=== PATIENT | female | born 1940 | race Caucasian/White ===

== ENCOUNTER 2018-11-13 05:58 | Emergency (ER) | payer MEDICAID, MEDICARE ==
[~2018-11-13] VITALS: Ht 162.6 cm; Wt 69.0 kg
[~2018-11-13 05:58] MED LIST: AMLO5TAB88 PO; CALC-1017 PO; DEXL60CA3 PO; HYDR-4005; LAMIS2 PO; LEVO500T2 PO; METO-293 PO; OMEP20CA10 PO; SIMV20TA6 PO; SUCR1TAB30 PO; TRAM50TA3 PO
[2018-11-13] MEDS ORDERED: HYDROCODONE/ACETAMINOPHEN 5/325MG TABLET PO ONE (07:00)
[2018-11-13] MEDS ORDERED: ONDANSETRON HCL 4MG/2ML INJ IV ONE (07:00)
[2018-11-13] MEDS ORDERED: ONDANSETRON 4MG ODT PO ONE (07:30)
[2018-11-13 08:48] VITALS: BP 136/88
== END 2018-11-13 10:08 | disposition home or self-care (01) ==
LOC: ER 07:31
DX: S20.20XA Contusion of thorax, unspecified, initial encounter (principal); M25.532 Pain in left wrist; M25.512 Pain in left shoulder; I10 Essential (primary) hypertension; M19.90 Unspecified osteoarthritis, unspecified site; Z95.0 Presence of cardiac pacemaker; W01.0XXA Fall on same level from slipping, tripping and stumbling without subsequent striking against object, initial encounter; Y93.89 Activity, other specified; Y92.018 Other place in single-family (private) house as the place of occurrence of the external cause
CPT/HCPCS: 29125; 71101; 73030; 73090; 73110; 73130; 99283; Q0162; A4565

== ENCOUNTER 2018-11-27 08:56 | Emergency (ER) | payer MEDICARE, MEDICAID ==
[~2018-11-27] VITALS: Ht 132.1 cm; Wt 70.0 kg
[2018-11-27 09:19] VITALS: BP 126/66
== END 2018-11-27 10:59 | disposition home or self-care (01) ==
LOC: ER 08:56
DX: M25.532 Pain in left wrist (principal); Z48.00 Encounter for change or removal of nonsurgical wound dressing
CPT/HCPCS: 29125; 99283

== ENCOUNTER 2019-05-08 09:47 | Emergency (ER) | payer MEDICARE, MEDICAID ==
[~2019-05-08] VITALS: Ht 147.3 cm; Wt 70.0 kg
[~2019-05-08 09:47] MED LIST changes: -OMEP20CA10 PO; +OMEP20CA5 PO
[2019-05-08] MEDS ORDERED: IBUPROFEN 600MG TABLET PO STA (10:57)
[2019-05-08 11:06] LABS: CHLORIDE 99 mEq/L (98-107)
[2019-05-08 11:09] LABS: BASOPHILS % 0.1 % (0.0-2.0); EOSINOPHILS % 0.2 % (0.0-5.0); HEMATOCRIT. 34.7 % (36.0-48.0); HEMOGLOBIN. 11.9 g/dL (12.0-16.0); LYMPHOCYTES % 10.2 % (20.0-50.0); MEAN CORPUSCULAR VOLUME 87.3 fL (81.0-99.0); MEAN PLATELET VOLUME 9.2 fl (7.4-10.4); MONOCYTES % 7.3 % (2.0-8.0); NEUTROPHILS % 82.2 % (40.0-76.0); RED BLOOD CELL COUNT 3.97 mill/uL (4.2-5.4); RED CELL DISTRIBUTION WIDTH 14.3 % (11.6-14.6)
[2019-05-08 11:33] LABS: PLATELET 211 x1000/uL (130-400)
[2019-05-08] MEDS ORDERED: KETOROLAC 15MG/ML VIAL IV ONE (13:45)
[2019-05-08] MEDS ORDERED: PREDNISONE 20MG TABLET PO ONE (13:45)
[2019-05-08 14:43] VITALS: BP 131/77
== END 2019-05-08 14:45 | disposition home or self-care (01) ==
LOC: ER 09:47
DX: M13.88 Other specified arthritis, other site (principal); E78.00 Pure hypercholesterolemia, unspecified; I10 Essential (primary) hypertension; I48.91 Unspecified atrial fibrillation; Z79.899 Other long term (current) drug therapy
CPT/HCPCS: 36415; 73110; 73610; 80053; 85025; 85651; 86140; 93005; 96374; 99283; J1885; J7512

== ENCOUNTER 2020-08-08 10:50 | Emergency (ER) | payer MEDICARE, MEDICAID ==
[~2020-08-08] VITALS: Ht 149.9 cm; Wt 67.5 kg
[~2020-08-08 10:50] MED LIST changes: +OMEP20CA14 PO; -OMEP20CA5 PO; +SIMV-43 PO; -SIMV20TA6 PO
[2020-08-08] MEDS ORDERED: SODIUM CHLORIDE 0.9% 1,000 ML IV ONE (11:30)
[2020-08-08] MEDS ORDERED: PROCHLORPERAZINE 10MG/2ML VIAL IV PRN (11:30)
[2020-08-08 11:57] LABS: BASOPHILS % 0.4 % (0.0-2.0); EOSINOPHILS % 0.7 % (0.0-5.0); HEMATOCRIT. 37.8 % (36.0-48.0); HEMOGLOBIN. 12.9 g/dL (12.0-16.0); LYMPHOCYTES % 19.2 % (20.0-50.0); MEAN CORPUSCULAR HEMOGLOBIN 31.3 pg (28.0-32.0); MEAN CORPUSCULAR VOLUME 91.8 fL (81.0-99.0); MEAN PLATELET VOLUME 8.6 fl (7.4-10.4); MONOCYTES % 7.1 % (2.0-8.0); NEUTROPHILS % 72.6 % (40.0-76.0); PLATELET 248 x1000/uL (130-400); RED BLOOD CELL COUNT 4.12 mill/uL (4.2-5.4); RED CELL DISTRIBUTION WIDTH 13.2 % (11.6-14.6)
[2020-08-08 12:03] LABS: CHLORIDE 102 mEq/L (98-107)
[2020-08-08 12:38] LABS: CLARITY URINE CLEAR (CLEAR); COLOR URINE YELLOW (YELLOW); KETONES URINE NEGATIVE (NEGATIVE); LEUKOCYTE ESTERASE URINE NEGATIVE (NEGATIVE); NITRITE URINE NEGATIVE (NEGATIVE); OCCULT BLOOD URINE TRACE (NEGATIVE); PROTEIN URINE NEGATIVE (NEGATIVE); SPECIFIC GRAVITY URINE 1.012 (1.005-1.030); UROBILINOGEN URINE 0.2 E.U./dL (0.2-1.0)
[2020-08-08 13:02] VITALS: BP 130/75
== END 2020-08-08 13:18 | disposition home or self-care (01) ==
LOC: ER 10:50
DX: R42 Dizziness and giddiness (principal); R51 Headache; I48.91 Unspecified atrial fibrillation; E78.00 Pure hypercholesterolemia, unspecified; I10 Essential (primary) hypertension; Z79.899 Other long term (current) drug therapy
CPT/HCPCS: 36415; 80048; 81003; 85025; 93005; 96361; 96374; 99284; J7030

== ENCOUNTER 2020-10-06 14:07 | Inpatient (IN) | payer MEDICARE, MEDICAID ==
[~2020-10-06] VITALS: Ht 162.6 cm; Wt 70.8 kg
[2020-10-06] MEDS ORDERED: MORPHINE SULFATE 4 MG/ML CPJ (NOT FOR IM USE) IV STA ×2 (14:31→16:36)
[2020-10-06] MEDS ORDERED: ONDANSETRON HCL 4MG/2ML INJ IV STA ×2 (14:31→16:36)
[2020-10-06] MEDS ORDERED: SODIUM CHLORIDE 0.9% 1,000 ML IV ONE (14:45)
[2020-10-06 15:06] LABS: BASOPHILS % 0.2 % (0.0-2.0); EOSINOPHILS % 0.8 % (0.0-5.0); HEMATOCRIT. 35.2 % (36.0-48.0); HEMOGLOBIN. 11.9 g/dL (12.0-16.0); LYMPHOCYTES % 28.4 % (20.0-50.0); MEAN CORPUSCULAR HEMOGLOBIN 30.5 pg (28.0-32.0); MEAN CORPUSCULAR VOLUME 90.4 fL (81.0-99.0); MEAN PLATELET VOLUME 8.1 fl (7.4-10.4); MONOCYTES % 6.6 % (2.0-8.0); PLATELET 235 x1000/uL (130-400); RED CELL DISTRIBUTION WIDTH 13.1 % (11.6-14.6)
[2020-10-06 15:17] LABS: CHLORIDE 98 mEq/L (98-107)
[2020-10-06 15:19] LABS: PARTIAL THROMBOPLASTIN TIME 27.6 sec (23.4-31.0); PROTHROMBIN TIME 10.4 sec (9.6-11.0)
[2020-10-06] MEDS ORDERED: AZITHROMYCIN 500 MG in DEXT 5% WATER 250 ML IV ONE (16:45)
[2020-10-06] MEDS ORDERED: CEFTRIAXONE 1 G PREMIX 50 ML IV ONE (16:45)
[2020-10-06 17:40] LABS: CLARITY URINE CLEAR (CLEAR); COLOR URINE YELLOW (YELLOW); KETONES URINE NEGATIVE (NEGATIVE); LEUKOCYTE ESTERASE URINE NEGATIVE (NEGATIVE); NITRITE URINE NEGATIVE (NEGATIVE); OCCULT BLOOD URINE NEGATIVE (NEGATIVE); PH URINE 5.5 (4.5-8.0); PROTEIN URINE NEGATIVE (NEGATIVE); SPECIFIC GRAVITY URINE 1.018 (1.005-1.030); UROBILINOGEN URINE 0.2 E.U./dL (0.2-1.0)
[2020-10-06] MEDS ORDERED: CLONIDINE 0.1MG TABLET PO PRN (18:45)
[2020-10-06] MEDS ORDERED: IPRATROPIUM/ALBUTEROL 0.5-3(2.5)MG/3ML NEB NEB PRN (18:45)
[2020-10-06] MEDS ORDERED: DOCUSATE SODIUM 100MG CAPSULE PO PRN (18:45)
[2020-10-06] MEDS ORDERED: GUAIFENESIN 200MG/10ML SUGAR FREE UDC PO PRN (18:45)
[2020-10-06] MEDS ORDERED: MAGNESIUM/ALUMINUM HYDROXIDE/SIMETHICONE 30ML UDC PO PRN (18:45)
[2020-10-06] MEDS ORDERED: NITROGLYCERIN 0.4MG TABLET SL SL PRN (18:45)
[2020-10-06] MEDS ORDERED: ONDANSETRON HCL 4MG/2ML INJ IV PRN (18:45)
[2020-10-06] MEDS ORDERED: TRAMADOL 50MG TABLET PO PRN (18:45)
[2020-10-06] MEDS ORDERED: ACETAMINOPHEN 325MG TABLET PO PRN ×2 (18:45)
[2020-10-06] MEDS ORDERED: MORPHINE SULFATE 2 MG/ML CPJ (NOT FOR IM USE) IV PRN (18:45)
[2020-10-06] MEDS ORDERED: NA PHOS,M-B/NA PHOS,DI-BA ENEMA 118ML PR PRN (18:45)
[2020-10-06 19:50] LABS: FOLIC ACID (FOLATE) SERUM 16.6 ng/mL (>5.38)
[2020-10-06] MEDS: ENOXAPARIN 40MG/0.4ML SYR SUBCUT SCH (20:30)
[2020-10-06 21:00] VITALS: BP 142/62
[2020-10-06 21:15] VITALS: BP 142/62
[2020-10-06] MEDS: METOPROLOL TARTRATE 25MG TABLET PO SCH (23:09)
[2020-10-06] MEDS: FAMOTIDINE 20MG TABLET PO SCH (23:09)
[2020-10-06] MEDS: ASCORBIC ACID 500 MG TABLET PO SCH (23:09)
[2020-10-07] VITALS: BP 120/69
[2020-10-07 00:38] LABS: CREATINE KINASE 302 IU/L (26-192)
[2020-10-07 00:39] LABS: CREATINE KINASE MB FRACTION 4.8 ng/mL (0.5-3.6)
[2020-10-07 05:13] LABS: CREATINE KINASE 289 IU/L (26-192)
[2020-10-07 05:15] LABS: CREATINE KINASE MB FRACTION 3.5 ng/mL (0.5-3.6)
[2020-10-07] MEDS: FERROUS SULFATE 300MG/5ML UDC PO SCH ×3 (07:35→17:29)
[2020-10-07 08:00] VITALS: BP 122/74
[2020-10-07] MEDS: METOPROLOL TARTRATE 25MG TABLET PO SCH ×2 (09:56→22:37)
[2020-10-07] MEDS: ZINC SULFATE 220 MG ( 50 ) CAPSULE PO SCH (09:56)
[2020-10-07] MEDS: ASCORBIC ACID 500 MG TABLET PO SCH ×2 (09:56→22:37)
[2020-10-07] MEDS: FAMOTIDINE 20MG TABLET PO SCH (09:56)
[2020-10-07 12:00] VITALS: BP 125/66
[2020-10-07 16:00] VITALS: BP 136/68
[2020-10-07] MEDS ORDERED: FENTANYL CITRATE/PF 50MCG/ML 2ML VIAL ONE (19:10)
[2020-10-07] MEDS ORDERED: MIDAZOLAM HCL 2 MG/2 ML VIAL ONE (19:11)
[2020-10-07] MEDS ORDERED: ETOMIDATE 2MG/ML 10ML VIAL IV ONE (19:17)
[2020-10-07] MEDS ORDERED: ROCURONIUM BROMIDE 10MG/ML VIAL 5ML IV ONE (19:17)
[2020-10-07] MEDS ORDERED: CEFAZOLIN SODIUM 1000MG/VIAL ONE (19:27)
[2020-10-07] MEDS ORDERED: DEXAMETHASONE 4MG/ML 1ML VIAL ONE (19:35)
[2020-10-07] MEDS ORDERED: ONDANSETRON HCL 4MG/2ML INJ ONE (19:35)
[2020-10-07] MEDS ORDERED: HYDROMORPHONE HCL/PF 2MG/ML CPJ IV PRN ×2 (20:32→21:00)
[2020-10-07 21:55] VITALS: BP 130/60
[2020-10-07] MEDS: CEFAZOLIN 2,000 MG in DEXT 5% WATER 100 ML IV SCH (23:29)
[2020-10-07] MEDS: HYDROCODONE/ACETAMINOPHEN 5/325MG TABLET PO PRN (23:44)
[2020-10-08 00:39] VITALS: BP 115/63
[2020-10-08 04:00] VITALS: BP 96/57
[2020-10-08 05:47] LABS: HEMATOCRIT. 30.9 % (36.0-48.0); HEMOGLOBIN. 10.4 g/dL (12.0-16.0); LYMPHOCYTES % 7.5 % (20.0-50.0); MEAN CORPUSCULAR HEMOGLOBIN 30.4 pg (28.0-32.0); MEAN CORPUSCULAR VOLUME 90.1 fL (81.0-99.0); MEAN PLATELET VOLUME 8.3 fl (7.4-10.4); MONOCYTES % 3.4 % (2.0-8.0); NEUTROPHILS % 89.1 % (40.0-76.0); PLATELET 207 x1000/uL (130-400); RED BLOOD CELL COUNT 3.43 mill/uL (4.2-5.4); RED CELL DISTRIBUTION WIDTH 13.1 % (11.6-14.6)
[2020-10-08 06:08] LABS: CHLORIDE 106 mEq/L (98-107)
[2020-10-08] MEDS: CEFAZOLIN 2,000 MG in DEXT 5% WATER 100 ML IV SCH ×3 (06:50→22:56)
[2020-10-08 08:38] VITALS: BP 107/64
[2020-10-08] MEDS: FAMOTIDINE 20MG TABLET PO SCH (08:44)
[2020-10-08] MEDS: ZINC SULFATE 220 MG ( 50 ) CAPSULE PO SCH (08:44)
[2020-10-08] MEDS: FERROUS SULFATE 300MG/5ML UDC PO SCH ×3 (08:44→17:51)
[2020-10-08] MEDS: ASCORBIC ACID 500 MG TABLET PO SCH ×2 (08:44→20:33)
[2020-10-08] MEDS: METOPROLOL TARTRATE 25MG TABLET PO SCH ×2 (08:45→20:43)
[2020-10-08 12:00] VITALS: BP 105/55
[2020-10-08] MEDS: HYDROCODONE/ACETAMINOPHEN 5/325MG TABLET PO PRN ×2 (13:10→13:13)
[2020-10-08 16:29] VITALS: BP 121/64
[2020-10-08] MEDS: ENOXAPARIN 40MG/0.4ML SYR SUBCUT SCH ×2 (19:45→20:34)
[2020-10-08 20:00] VITALS: BP 111/58
[2020-10-08] MEDS: ZOLPIDEM TARTRATE 5MG TABLET PO PRN (20:33)
[2020-10-09] VITALS: BP 106/55
[2020-10-09 04:00] VITALS: BP 96/51
[2020-10-09 06:37] LABS: BASOPHILS % 0.1 % (0.0-2.0); EOSINOPHILS % 0.3 % (0.0-5.0); HEMOGLOBIN. 9.5 g/dL (12.0-16.0); LYMPHOCYTES % 30.3 % (20.0-50.0); MEAN CORPUSCULAR HEMOGLOBIN 30.7 pg (28.0-32.0); MEAN CORPUSCULAR VOLUME 90.4 fL (81.0-99.0); MEAN PLATELET VOLUME 8.7 fl (7.4-10.4); MONOCYTES % 11.5 % (2.0-8.0); NEUTROPHILS % 57.8 % (40.0-76.0); PLATELET 188 x1000/uL (130-400); RED BLOOD CELL COUNT 3.09 mill/uL (4.2-5.4); RED CELL DISTRIBUTION WIDTH 13.3 % (11.6-14.6)
[2020-10-09 06:47] LABS: CHLORIDE 106 mEq/L (98-107)
[2020-10-09] MEDS: CEFAZOLIN 2,000 MG in DEXT 5% WATER 100 ML IV SCH ×3 (07:10→22:25)
[2020-10-09 08:18] VITALS: BP 111/60
[2020-10-09] MEDS: FERROUS SULFATE 300MG/5ML UDC PO SCH ×3 (10:17→18:09)
[2020-10-09] MEDS: ZINC SULFATE 220 MG ( 50 ) CAPSULE PO SCH (10:17)
[2020-10-09] MEDS: FAMOTIDINE 20MG TABLET PO SCH (10:18)
[2020-10-09] MEDS: ASCORBIC ACID 500 MG TABLET PO SCH ×2 (10:18→21:25)
[2020-10-09] MEDS: METOPROLOL TARTRATE 25MG TABLET PO SCH ×2 (10:18→21:25)
[2020-10-09] MEDS: HYDROCODONE/ACETAMINOPHEN 5/325MG TABLET PO PRN ×2 (11:26→15:24)
[2020-10-09 12:45] VITALS: BP 111/61
[2020-10-09 17:18] VITALS: BP 111/60
[2020-10-09] MEDS: DOCUSATE SODIUM 100MG CAPSULE PO SCH (18:09)
[2020-10-09] MEDS: CYANOCOBALAMIN 1000MCG/ML VIAL IM SCH (18:09)
[2020-10-09 20:00] VITALS: BP 125/50
[2020-10-09] MEDS ORDERED: POLYETHYLENE GLYCOL 3350 (17GM) 1 DOSE PACK PO SCH (21:00)
[2020-10-09] MEDS: ENOXAPARIN 40MG/0.4ML SYR SUBCUT SCH (21:26)
[2020-10-09] MEDS: ZOLPIDEM TARTRATE 5MG TABLET PO PRN (22:24)
[2020-10-10 00:34] VITALS: BP 130/67
[2020-10-10 04:00] VITALS: BP 105/63
[2020-10-10 06:19] LABS: BASOPHILS % 0.3 % (0.0-2.0); HEMATOCRIT. 26.5 % (36.0-48.0); HEMOGLOBIN. 8.9 g/dL (12.0-16.0); LYMPHOCYTES % 23.3 % (20.0-50.0); MEAN CORPUSCULAR HEMOGLOBIN 30.7 pg (28.0-32.0); MEAN CORPUSCULAR VOLUME 90.6 fL (81.0-99.0); MEAN PLATELET VOLUME 8.9 fl (7.4-10.4); MONOCYTES % 8.1 % (2.0-8.0); NEUTROPHILS % 67.3 % (40.0-76.0); PLATELET 194 x1000/uL (130-400); RED BLOOD CELL COUNT 2.92 mill/uL (4.2-5.4); RED CELL DISTRIBUTION WIDTH 13.2 % (11.6-14.6)
[2020-10-10 06:28] LABS: CHLORIDE 103 mEq/L (98-107)
[2020-10-10 08:00] VITALS: BP 108/54
[2020-10-10] MEDS: FERROUS SULFATE 300MG/5ML UDC PO SCH ×3 (08:59→17:54)
[2020-10-10] MEDS: ASCORBIC ACID 500 MG TABLET PO SCH (08:59)
[2020-10-10] MEDS: ZINC SULFATE 220 MG ( 50 ) CAPSULE PO SCH (09:00)
[2020-10-10] MEDS: METOPROLOL TARTRATE 25MG TABLET PO SCH (09:00)
[2020-10-10] MEDS: DOCUSATE SODIUM 100MG CAPSULE PO SCH ×2 (09:00→17:54)
[2020-10-10] MEDS: FAMOTIDINE 20MG TABLET PO SCH (09:00)
[2020-10-10] MEDS: CYANOCOBALAMIN 1000MCG/ML VIAL IM SCH (09:03)
[2020-10-10] MEDS: HYDROCODONE/ACETAMINOPHEN 5/325MG TABLET PO PRN (09:14)
[2020-10-10 12:00] VITALS: BP 112/50
[2020-10-10 15:25] VITALS: BP 112/50
[2020-10-10 16:00] VITALS: BP 125/58
== END 2020-10-10 18:08 | DRG 481 ==
LOC: ER 14:07 → 7EST 18:12 → SUPCPDRO 18:37 → ENRESERV 20:29 → 6WST 10-07 21:50
PROVIDERS: ADMIT Internal Medicine; ATTEND Internal Medicine
PROC: 0QS804Z Reposition Right Femoral Shaft with Internal Fixation Device, Open Approach (ICD-10-PCS; principal; 2020-10-08)
DX: S72.8X1A Other fracture of right femur, initial encounter for closed fracture (principal); D62 Acute posthemorrhagic anemia; E87.1 Hypo-osmolality and hyponatremia; E87.2 Acidosis; I50.32 Chronic diastolic (congestive) heart failure; M97.11XA Periprosthetic fracture around internal prosthetic right knee joint, initial encounter; D63.8 Anemia in other chronic diseases classified elsewhere; I11.0 Hypertensive heart disease with heart failure; M85.80 Other specified disorders of bone density and structure, unspecified site; E78.5 Hyperlipidemia, unspecified; E53.8 Deficiency of other specified B group vitamins; E78.00 Pure hypercholesterolemia, unspecified; I25.9 Chronic ischemic heart disease, unspecified; I48.0 Paroxysmal atrial fibrillation; M19.019 Primary osteoarthritis, unspecified shoulder; M75.00 Adhesive capsulitis of unspecified shoulder; W01.0XXA Fall on same level from slipping, tripping and stumbling without subsequent striking against object, initial encounter; Z20.828 Contact with and (suspected) exposure to other viral communicable diseases; I49.5 Sick sinus syndrome; Z96.653 Presence of artificial knee joint, bilateral; Z79.899 Other long term (current) drug therapy; Z95.0 Presence of cardiac pacemaker; Y93.89 Activity, other specified; Y92.89 Other specified places as the place of occurrence of the external cause; Y99.8 Other external cause status; Z79.2 Long term (current) use of antibiotics; Z79.891 Long term (current) use of opiate analgesic
CPT/HCPCS: 36415; 71045; 73502; 73552; 73560; 76000; 80048; 80053; 80061; 81003; 82550; 82553; 82607; 82746; 83036; 83540; 83550; 83605; 83735; 83880; 84484; 85025; 86850; 86900; 87635; 93005; 93306; 93970; 96365; 97162; 97166; 97530; 97535; 99291; C1713; C1893; J0456; J0690; J0696; J1100; J1170; J1650; J2250; J2405; J3010; J3420; J3490; J7030; J7040; J7060

== ENCOUNTER 2020-10-10 18:05 | Inpatient (IN) | payer MEDICARE, MEDICAID ==
[~2020-10-10] VITALS: Ht 142.2 cm; Wt 73.6 kg
[2020-10-10] MEDS ORDERED: GUAIFENESIN 200MG/10ML SUGAR FREE UDC PO PRN (19:15)
[2020-10-10] MEDS ORDERED: ACETAMINOPHEN 325MG TABLET PO PRN (19:15)
[2020-10-10] MEDS ORDERED: NITROGLYCERIN 0.4MG TABLET SL SL PRN (19:15)
[2020-10-10] MEDS ORDERED: ONDANSETRON HCL 4MG/2ML INJ IV PRN (19:15)
[2020-10-10] MEDS ORDERED: NA PHOS,M-B/NA PHOS,DI-BA ENEMA 118ML PR PRN (19:15)
[2020-10-10] MEDS ORDERED: IPRATROPIUM/ALBUTEROL 0.5-3(2.5)MG/3ML NEB HHN PRN (19:15)
[2020-10-10] MEDS ORDERED: CLONIDINE 0.1MG TABLET PO PRN (19:15)
[2020-10-10] MEDS ORDERED: MAGNESIUM/ALUMINUM HYDROXIDE/SIMETHICONE 30ML UDC PO PRN (19:15)
[2020-10-10 20:00] VITALS: BP 106/65
[2020-10-10] MEDS ORDERED: ZOLPIDEM TARTRATE 5MG TABLET PO PRN (21:00)
[2020-10-10] MEDS: ASCORBIC ACID 500 MG TABLET PO SCH (21:25)
[2020-10-10] MEDS: METOPROLOL TARTRATE 25MG TABLET PO SCH (21:25)
[2020-10-10] MEDS: POLYETHYLENE GLYCOL 3350 (17GM) 1 DOSE PACK PO SCH (21:25)
[2020-10-10] MEDS: ENOXAPARIN 40MG/0.4ML SYR SUBCUT SCH (21:26)
[2020-10-11] MEDS: HYDROCODONE/ACETAMINOPHEN 10/325MG TABLET PO PRN ×2 (05:57→11:57)
[2020-10-11 06:04] LABS: BASOPHILS % 0.3 % (0.0-2.0); EOSINOPHILS % 1.1 % (0.0-5.0); HEMATOCRIT. 24.6 % (36.0-48.0); HEMOGLOBIN. 8.4 g/dL (12.0-16.0); LYMPHOCYTES % 26.5 % (20.0-50.0); MEAN CORPUSCULAR HEMOGLOBIN 30.3 pg (28.0-32.0); MEAN CORPUSCULAR VOLUME 88.9 fL (81.0-99.0); MONOCYTES % 8.6 % (2.0-8.0); NEUTROPHILS % 63.5 % (40.0-76.0); PLATELET 201 x1000/uL (130-400); RED BLOOD CELL COUNT 2.76 mill/uL (4.2-5.4); RED CELL DISTRIBUTION WIDTH 13.4 % (11.6-14.6)
[2020-10-11 06:23] LABS: CHLORIDE 103 mEq/L (98-107)
[2020-10-11 08:00] VITALS: BP 116/60
[2020-10-11] MEDS: ASCORBIC ACID 500 MG TABLET PO SCH ×2 (09:26→20:36)
[2020-10-11] MEDS: METOPROLOL TARTRATE 25MG TABLET PO SCH ×2 (09:26→20:39)
[2020-10-11] MEDS: FERROUS SULFATE 300MG/5ML UDC PO SCH ×3 (09:26→16:33)
[2020-10-11] MEDS: DOCUSATE SODIUM 100MG CAPSULE PO SCH ×2 (09:26→16:34)
[2020-10-11] MEDS: ZINC SULFATE 220 MG ( 50 ) CAPSULE PO SCH (09:27)
[2020-10-11] MEDS: LACTULOSE 20G/30ML UDC PO SCH ×2 (09:27→11:57)
[2020-10-11] MEDS: CYANOCOBALAMIN 1000MCG/ML VIAL IM SCH (09:27)
[2020-10-11 12:44] LABS: CLARITY URINE CLEAR (CLEAR); COLOR URINE YELLOW (YELLOW); KETONES URINE NEGATIVE (NEGATIVE); LEUKOCYTE ESTERASE URINE NEGATIVE (NEGATIVE); NITRITE URINE NEGATIVE (NEGATIVE); OCCULT BLOOD URINE NEGATIVE (NEGATIVE); PH URINE 6.5 (4.5-8.0); PROTEIN URINE TRACE (NEGATIVE); SPECIFIC GRAVITY URINE 1.026 (1.005-1.030)
[2020-10-11 20:00] VITALS: BP 121/55
[2020-10-11] MEDS: POLYETHYLENE GLYCOL 3350 (17GM) 1 DOSE PACK PO SCH (20:39)
[2020-10-11] MEDS: ENOXAPARIN 40MG/0.4ML SYR SUBCUT SCH (20:55)
[2020-10-11] MEDS ORDERED: FAMOTIDINE 20MG TABLET PO SCH (21:00)
[2020-10-12 06:13] LABS: BASOPHILS % 0.2 % (0.0-2.0); EOSINOPHILS % 1.6 % (0.0-5.0); HEMOGLOBIN. 8.4 g/dL (12.0-16.0); LYMPHOCYTES % 24.9 % (20.0-50.0); MEAN CORPUSCULAR HEMOGLOBIN 30.5 pg (28.0-32.0); MEAN CORPUSCULAR VOLUME 90.6 fL (81.0-99.0); MEAN PLATELET VOLUME 8.3 fl (7.4-10.4); MONOCYTES % 9.1 % (2.0-8.0); NEUTROPHILS % 64.2 % (40.0-76.0); PLATELET 213 x1000/uL (130-400); RED BLOOD CELL COUNT 2.76 mill/uL (4.2-5.4); RED CELL DISTRIBUTION WIDTH 13.5 % (11.6-14.6)
[2020-10-12 06:18] LABS: CHLORIDE 106 mEq/L (98-107)
[2020-10-12 06:27] LABS: PHOSPHORUS 2.4 mg/dL (2.5-4.9)
[2020-10-12 08:03] VITALS: BP 127/65
[2020-10-12] MEDS: ZINC SULFATE 220 MG ( 50 ) CAPSULE PO SCH (08:28)
[2020-10-12] MEDS: CYANOCOBALAMIN 1000MCG/ML VIAL IM SCH (08:28)
[2020-10-12] MEDS: ASCORBIC ACID 500 MG TABLET PO SCH ×2 (08:28→20:42)
[2020-10-12] MEDS: DOCUSATE SODIUM 100MG CAPSULE PO SCH (08:28)
[2020-10-12] MEDS: METOPROLOL TARTRATE 25MG TABLET PO SCH ×2 (08:29→20:48)
[2020-10-12] MEDS: FERROUS SULFATE 300MG/5ML UDC PO SCH ×3 (08:29→16:13)
[2020-10-12] MEDS: HYDROCODONE/ACETAMINOPHEN 10/325MG TABLET PO PRN (08:30)
[2020-10-12] MEDS ORDERED: POTASSIUM-SODIUM PHOSPHATE POWDER PACKET PO SCH (09:00)
[2020-10-12] MEDS ORDERED: FLUCONAZOLE 150MG TABLET PO SCH (10:00)
[2020-10-12] MEDS: DOCUSATE SODIUM 250MG CAPSULE PO SCH (16:13)
[2020-10-12] MEDS: OMEPRAZOLE 20MG CAPSULE EXTENDED RELEASE PO SCH (16:13)
[2020-10-12] MEDS: SUCRALFATE 1 G/10 ML UDC PO SCH ×2 (16:13→20:42)
[2020-10-12 20:00] VITALS: BP 135/64
[2020-10-12] MEDS: POLYETHYLENE GLYCOL 3350 (17GM) 1 DOSE PACK PO SCH (20:36)
[2020-10-12] MEDS: ENOXAPARIN 40MG/0.4ML SYR SUBCUT SCH (20:36)
[2020-10-12] MEDS: MICONAZOLE NITRATE 100MG VAG SUPP VG SCH (20:48)
[2020-10-13] MEDS: ENOXAPARIN 40MG/0.4ML SYR SUBCUT SCH ×2 (04:01→23:10)
[2020-10-13] MEDS: HYDROCODONE/ACETAMINOPHEN 10/325MG TABLET PO PRN ×2 (04:07→08:46)
[2020-10-13] MEDS: SUCRALFATE 1 G/10 ML UDC PO SCH ×4 (06:17→22:18)
[2020-10-13] MEDS: OMEPRAZOLE 20MG CAPSULE EXTENDED RELEASE PO SCH (06:17)
[2020-10-13 06:25] LABS: BASOPHILS % 0.2 % (0.0-2.0); CHLORIDE 104 mEq/L (98-107); EOSINOPHILS % 0.9 % (0.0-5.0); HEMATOCRIT. 25.8 % (36.0-48.0); HEMOGLOBIN. 8.6 g/dL (12.0-16.0); LYMPHOCYTES % 20.2 % (20.0-50.0); MEAN CORPUSCULAR HEMOGLOBIN 30.3 pg (28.0-32.0); MEAN CORPUSCULAR VOLUME 90.6 fL (81.0-99.0); MEAN PLATELET VOLUME 8.3 fl (7.4-10.4); MONOCYTES % 9.1 % (2.0-8.0); NEUTROPHILS % 69.6 % (40.0-76.0); PLATELET 187 x1000/uL (130-400); RED BLOOD CELL COUNT 2.84 mill/uL (4.2-5.4); RED CELL DISTRIBUTION WIDTH 13.4 % (11.6-14.6)
[2020-10-13 06:29] LABS: PHOSPHORUS 3.1 mg/dL (2.5-4.9)
[2020-10-13 06:32] LABS: T4 FREE 1.58 ng/dL (0.76-1.46)
[2020-10-13 08:00] VITALS: BP 129/72
[2020-10-13] MEDS: ZINC SULFATE 220 MG ( 50 ) CAPSULE PO SCH (08:44)
[2020-10-13] MEDS: DOCUSATE SODIUM 100MG CAPSULE PO PRN (08:46)
[2020-10-13] MEDS: CYANOCOBALAMIN 1000MCG/ML VIAL IM SCH (08:47)
[2020-10-13] MEDS: ASCORBIC ACID 500 MG TABLET PO SCH ×2 (08:47→22:18)
[2020-10-13] MEDS: METOPROLOL TARTRATE 25MG TABLET PO SCH ×2 (08:47→22:18)
[2020-10-13] MEDS: DOCUSATE SODIUM 250MG CAPSULE PO SCH ×2 (08:56→16:32)
[2020-10-13] MEDS: FERROUS SULFATE 300MG/5ML UDC PO SCH ×3 (09:00→16:33)
[2020-10-13 20:00] VITALS: BP_SYST 110
[2020-10-13] MEDS: POLYETHYLENE GLYCOL 3350 (17GM) 1 DOSE PACK PO SCH (22:18)
[2020-10-13] MEDS: MICONAZOLE NITRATE 100MG VAG SUPP VG SCH (23:10)
[2020-10-14 06:31] LABS: CHLORIDE 103 mEq/L (98-107)
[2020-10-14] MEDS: SUCRALFATE 1 G/10 ML UDC PO SCH ×4 (06:43→22:02)
[2020-10-14] MEDS: OMEPRAZOLE 20MG CAPSULE EXTENDED RELEASE PO SCH (06:43)
[2020-10-14 06:44] LABS: BASOPHILS % 0.2 % (0.0-2.0); EOSINOPHILS % 1.6 % (0.0-5.0); HEMATOCRIT. 28.6 % (36.0-48.0); HEMOGLOBIN. 9.5 g/dL (12.0-16.0); LYMPHOCYTES % 30.5 % (20.0-50.0); MEAN CORPUSCULAR HEMOGLOBIN 30.3 pg (28.0-32.0); MEAN CORPUSCULAR VOLUME 91.3 fL (81.0-99.0); MEAN PLATELET VOLUME 8.5 fl (7.4-10.4); MONOCYTES % 8.2 % (2.0-8.0); NEUTROPHILS % 59.5 % (40.0-76.0); PLATELET 225 x1000/uL (130-400); RED BLOOD CELL COUNT 3.13 mill/uL (4.2-5.4); RED CELL DISTRIBUTION WIDTH 13.7 % (11.6-14.6)
[2020-10-14 08:00] VITALS: BP 121/72
[2020-10-14] MEDS: HYDROCODONE/ACETAMINOPHEN 10/325MG TABLET PO PRN ×2 (08:13→17:36)
[2020-10-14] MEDS: ZINC SULFATE 220 MG ( 50 ) CAPSULE PO SCH (08:13)
[2020-10-14] MEDS: DOCUSATE SODIUM 250MG CAPSULE PO SCH ×2 (08:13→16:15)
[2020-10-14] MEDS: CYANOCOBALAMIN 1000MCG/ML VIAL IM SCH (08:13)
[2020-10-14] MEDS: METOPROLOL TARTRATE 25MG TABLET PO SCH ×2 (08:14→21:00)
[2020-10-14] MEDS: ASCORBIC ACID 500 MG TABLET PO SCH ×2 (08:14→22:02)
[2020-10-14] MEDS: FERROUS SULFATE 300MG/5ML UDC PO SCH ×3 (08:14→16:15)
[2020-10-14] MEDS: PHENYLEPH/PRAMOXIN/GLYCR/PET RECTAL CREAM 26GM PR SCH (17:35)
[2020-10-14 20:00] VITALS: BP 109/62
[2020-10-14] MEDS: POLYETHYLENE GLYCOL 3350 (17GM) 1 DOSE PACK PO SCH (22:01)
[2020-10-14] MEDS: MICONAZOLE NITRATE 100MG VAG SUPP VG SCH (22:02)
[2020-10-14] MEDS: ENOXAPARIN 40MG/0.4ML SYR SUBCUT SCH (22:06)
[2020-10-15] MEDS: PHENYLEPH/PRAMOXIN/GLYCR/PET RECTAL CREAM 26GM PR SCH ×4 (02:33→17:15)
[2020-10-15] MEDS: SUCRALFATE 1 G/10 ML UDC PO SCH ×4 (06:13→21:00)
[2020-10-15] MEDS: OMEPRAZOLE 20MG CAPSULE EXTENDED RELEASE PO SCH (06:13)
[2020-10-15] MEDS: CYANOCOBALAMIN 1000MCG/ML VIAL IM SCH (08:05)
[2020-10-15] MEDS: FERROUS SULFATE 300MG/5ML UDC PO SCH ×3 (08:05→17:14)
[2020-10-15] MEDS: DOCUSATE SODIUM 250MG CAPSULE PO SCH ×2 (08:05→17:14)
[2020-10-15] MEDS: HYDROCODONE/ACETAMINOPHEN 10/325MG TABLET PO PRN (08:06)
[2020-10-15] MEDS: ZINC SULFATE 220 MG ( 50 ) CAPSULE PO SCH (08:06)
[2020-10-15] MEDS: ASCORBIC ACID 500 MG TABLET PO SCH ×2 (08:06→20:59)
[2020-10-15] MEDS: METOPROLOL TARTRATE 25MG TABLET PO SCH ×2 (08:07→20:59)
[2020-10-15 08:11] VITALS: BP 127/60
[2020-10-15] MEDS ORDERED: LACTULOSE 20G/30ML UDC PO SCH (12:30)
[2020-10-15] MEDS ORDERED: NA PHOS,M-B/NA PHOS,DI-BA ENEMA 118ML PR NR (12:45)
[2020-10-15] MEDS: LACTULOSE 20G/30ML UDC PO SCH ×2 (12:46→21:00)
[2020-10-15 20:17] VITALS: BP 117/62
[2020-10-15] MEDS: ENOXAPARIN 40MG/0.4ML SYR SUBCUT SCH (21:00)
[2020-10-15] MEDS: POLYETHYLENE GLYCOL 3350 (17GM) 1 DOSE PACK PO SCH (21:00)
[2020-10-16 06:19] LABS: BASOPHILS % 0.2 % (0.0-2.0); HEMATOCRIT. 25.2 % (36.0-48.0); HEMOGLOBIN. 8.5 g/dL (12.0-16.0); LYMPHOCYTES % 21.3 % (20.0-50.0); MEAN CORPUSCULAR HEMOGLOBIN 30.9 pg (28.0-32.0); MEAN CORPUSCULAR VOLUME 91.6 fL (81.0-99.0); MEAN PLATELET VOLUME 8.4 fl (7.4-10.4); MONOCYTES % 8.4 % (2.0-8.0); NEUTROPHILS % 69.1 % (40.0-76.0); PLATELET 212 x1000/uL (130-400); RED BLOOD CELL COUNT 2.75 mill/uL (4.2-5.4); RED CELL DISTRIBUTION WIDTH 14.3 % (11.6-14.6)
[2020-10-16 06:50] LABS: CHLORIDE 105 mEq/L (98-107)
[2020-10-16] MEDS: HYDROCODONE/ACETAMINOPHEN 10/325MG TABLET PO PRN (07:04)
[2020-10-16] MEDS: PHENYLEPH/PRAMOXIN/GLYCR/PET RECTAL CREAM 26GM PR SCH ×4 (07:06→17:02)
[2020-10-16] MEDS: OMEPRAZOLE 20MG CAPSULE EXTENDED RELEASE PO SCH (07:08)
[2020-10-16] MEDS: SUCRALFATE 1 G/10 ML UDC PO SCH ×4 (07:08→20:30)
[2020-10-16 08:03] VITALS: BP 125/62
[2020-10-16] MEDS ORDERED: POTASSIUM CHLORIDE 20MEQ TABLET SR PO NR (08:45)
[2020-10-16] MEDS: ZINC SULFATE 220 MG ( 50 ) CAPSULE PO SCH (09:36)
[2020-10-16] MEDS: METOPROLOL TARTRATE 25MG TABLET PO SCH ×2 (09:36→20:30)
[2020-10-16] MEDS: FERROUS SULFATE 300MG/5ML UDC PO SCH ×3 (09:36→17:02)
[2020-10-16] MEDS: ASCORBIC ACID 500 MG TABLET PO SCH ×2 (09:37→20:31)
[2020-10-16] MEDS: DOCUSATE SODIUM 250MG CAPSULE PO SCH ×2 (09:37→17:02)
[2020-10-16 20:00] VITALS: BP 105/51
[2020-10-16] MEDS: ENOXAPARIN 40MG/0.4ML SYR SUBCUT SCH (20:31)
[2020-10-16] MEDS: POLYETHYLENE GLYCOL 3350 (17GM) 1 DOSE PACK PO SCH (20:31)
[2020-10-17] MEDS: PHENYLEPH/PRAMOXIN/GLYCR/PET RECTAL CREAM 26GM PR SCH ×5 (00:14→23:54)
[2020-10-17] MEDS: OMEPRAZOLE 20MG CAPSULE EXTENDED RELEASE PO SCH (06:20)
[2020-10-17] MEDS: SUCRALFATE 1 G/10 ML UDC PO SCH ×4 (06:20→20:26)
[2020-10-17] MEDS: HYDROCODONE/ACETAMINOPHEN 10/325MG TABLET PO PRN ×2 (06:21→13:24)
[2020-10-17 06:33] LABS: BASOPHILS % 0.2 % (0.0-2.0); EOSINOPHILS % 1.4 % (0.0-5.0); HEMOGLOBIN. 8.6 g/dL (12.0-16.0); LYMPHOCYTES % 25.5 % (20.0-50.0); MEAN CORPUSCULAR HEMOGLOBIN 31.3 pg (28.0-32.0); MEAN CORPUSCULAR VOLUME 91.4 fL (81.0-99.0); MEAN PLATELET VOLUME 8.2 fl (7.4-10.4); MONOCYTES % 8.4 % (2.0-8.0); NEUTROPHILS % 64.5 % (40.0-76.0); PLATELET 208 x1000/uL (130-400); RED BLOOD CELL COUNT 2.73 mill/uL (4.2-5.4); RED CELL DISTRIBUTION WIDTH 14.8 % (11.6-14.6)
[2020-10-17 06:38] LABS: CHLORIDE 107 mEq/L (98-107)
[2020-10-17 08:00] VITALS: BP 108/61
[2020-10-17] MEDS: FERROUS SULFATE 300MG/5ML UDC PO SCH ×3 (08:46→17:16)
[2020-10-17] MEDS: ZINC SULFATE 220 MG ( 50 ) CAPSULE PO SCH (08:47)
[2020-10-17] MEDS: ASCORBIC ACID 500 MG TABLET PO SCH ×2 (08:47→20:13)
[2020-10-17] MEDS: METOPROLOL TARTRATE 25MG TABLET PO SCH ×2 (08:50→20:13)
[2020-10-17] MEDS: DOCUSATE SODIUM 250MG CAPSULE PO SCH ×2 (08:50→17:00)
[2020-10-17 14:07] LABS: 25-HYDROXY VITAMIN D3 9.2 ng/mL (.)
[2020-10-17] MEDS: DOCUSATE SODIUM 100MG CAPSULE PO PRN (17:16)
[2020-10-17 20:00] VITALS: BP 132/90
[2020-10-17] MEDS: POLYETHYLENE GLYCOL 3350 (17GM) 1 DOSE PACK PO SCH (20:13)
[2020-10-17] MEDS: ENOXAPARIN 40MG/0.4ML SYR SUBCUT SCH (20:13)
[2020-10-18] MEDS: SUCRALFATE 1 G/10 ML UDC PO SCH ×4 (05:43→20:20)
[2020-10-18] MEDS: PHENYLEPH/PRAMOXIN/GLYCR/PET RECTAL CREAM 26GM PR SCH ×4 (05:44→23:06)
[2020-10-18] MEDS: OMEPRAZOLE 20MG CAPSULE EXTENDED RELEASE PO SCH (06:03)
[2020-10-18] MEDS: HYDROCODONE/ACETAMINOPHEN 10/325MG TABLET PO PRN ×2 (06:26→11:46)
[2020-10-18 08:00] VITALS: BP 110/59
[2020-10-18] MEDS: ZINC SULFATE 220 MG ( 50 ) CAPSULE PO SCH (08:19)
[2020-10-18] MEDS: METOPROLOL TARTRATE 25MG TABLET PO SCH ×2 (08:20→20:21)
[2020-10-18] MEDS: FERROUS SULFATE 300MG/5ML UDC PO SCH ×3 (08:20→17:07)
[2020-10-18] MEDS: ASCORBIC ACID 500 MG TABLET PO SCH ×2 (08:20→20:20)
[2020-10-18] MEDS: DOCUSATE SODIUM 250MG CAPSULE PO SCH ×2 (08:57→17:07)
[2020-10-18] MEDS: ERGOCALCIFEROL 50000UNITS CAPSULE PO SCH (15:19)
[2020-10-18 20:00] VITALS: BP 140/86
[2020-10-18] MEDS: ENOXAPARIN 40MG/0.4ML SYR SUBCUT SCH (20:20)
[2020-10-18] MEDS: POLYETHYLENE GLYCOL 3350 (17GM) 1 DOSE PACK PO SCH (20:21)
[2020-10-19] MEDS: SUCRALFATE 1 G/10 ML UDC PO SCH ×4 (06:06→21:16)
[2020-10-19] MEDS: OMEPRAZOLE 20MG CAPSULE EXTENDED RELEASE PO SCH (06:06)
[2020-10-19] MEDS: PHENYLEPH/PRAMOXIN/GLYCR/PET RECTAL CREAM 26GM PR SCH ×3 (06:06→17:10)
[2020-10-19 07:53] VITALS: BP 151/61
[2020-10-19] MEDS: FERROUS SULFATE 300MG/5ML UDC PO SCH ×3 (08:07→17:10)
[2020-10-19] MEDS: METOPROLOL TARTRATE 25MG TABLET PO SCH ×2 (08:07→21:17)
[2020-10-19] MEDS: ASCORBIC ACID 500 MG TABLET PO SCH ×2 (08:07→21:16)
[2020-10-19] MEDS: ZINC SULFATE 220 MG ( 50 ) CAPSULE PO SCH (08:07)
[2020-10-19] MEDS: DOCUSATE SODIUM 250MG CAPSULE PO SCH ×2 (08:07→17:11)
[2020-10-19] MEDS: DOCUSATE SODIUM 100MG CAPSULE PO PRN (17:10)
[2020-10-19 20:00] VITALS: BP 138/64
[2020-10-19] MEDS: ENOXAPARIN 40MG/0.4ML SYR SUBCUT SCH (21:16)
[2020-10-19] MEDS: POLYETHYLENE GLYCOL 3350 (17GM) 1 DOSE PACK PO SCH (21:16)
[2020-10-19] MEDS: HYDROCODONE/ACETAMINOPHEN 10/325MG TABLET PO PRN (21:17)
[2020-10-20] MEDS: PHENYLEPH/PRAMOXIN/GLYCR/PET RECTAL CREAM 26GM PR SCH ×5 (01:18→23:38)
[2020-10-20] MEDS: OMEPRAZOLE 20MG CAPSULE EXTENDED RELEASE PO SCH (06:31)
[2020-10-20] MEDS: SUCRALFATE 1 G/10 ML UDC PO SCH ×4 (06:31→21:13)
[2020-10-20 07:09] VITALS: BP 146/72
[2020-10-20] MEDS: HYDROCODONE/ACETAMINOPHEN 10/325MG TABLET PO PRN ×2 (07:17→13:54)
[2020-10-20] MEDS: ASCORBIC ACID 500 MG TABLET PO SCH ×2 (09:38→21:06)
[2020-10-20] MEDS: METOPROLOL TARTRATE 25MG TABLET PO SCH ×2 (09:38→21:07)
[2020-10-20] MEDS: ZINC SULFATE 220 MG ( 50 ) CAPSULE PO SCH (09:38)
[2020-10-20] MEDS: DOCUSATE SODIUM 250MG CAPSULE PO SCH ×2 (09:39→16:59)
[2020-10-20] MEDS: FERROUS SULFATE 300MG/5ML UDC PO SCH ×3 (10:14→16:59)
[2020-10-20 20:00] VITALS: BP 115/66
[2020-10-20] MEDS: POLYETHYLENE GLYCOL 3350 (17GM) 1 DOSE PACK PO SCH (21:08)
[2020-10-20] MEDS: ENOXAPARIN 40MG/0.4ML SYR SUBCUT SCH (21:09)
[2020-10-21 06:42] LABS: BASOPHILS % 0.4 % (0.0-2.0); EOSINOPHILS % 1.4 % (0.0-5.0); HEMATOCRIT. 30.9 % (36.0-48.0); HEMOGLOBIN. 10.5 g/dL (12.0-16.0); LYMPHOCYTES % 22.4 % (20.0-50.0); MEAN CORPUSCULAR HEMOGLOBIN 31.5 pg (28.0-32.0); MEAN CORPUSCULAR VOLUME 92.3 fL (81.0-99.0); MEAN PLATELET VOLUME 8.8 fl (7.4-10.4); MONOCYTES % 7.5 % (2.0-8.0); NEUTROPHILS % 68.3 % (40.0-76.0); PLATELET 297 x1000/uL (130-400); RED BLOOD CELL COUNT 3.34 mill/uL (4.2-5.4); RED CELL DISTRIBUTION WIDTH 15.1 % (11.6-14.6)
[2020-10-21] MEDS: SUCRALFATE 1 G/10 ML UDC PO SCH ×4 (07:02→21:04)
[2020-10-21] MEDS: OMEPRAZOLE 20MG CAPSULE EXTENDED RELEASE PO SCH (07:02)
[2020-10-21] MEDS: PHENYLEPH/PRAMOXIN/GLYCR/PET RECTAL CREAM 26GM PR SCH ×3 (07:02→18:00)
[2020-10-21 08:00] VITALS: BP 143/65
[2020-10-21 08:29] VITALS: BP 143/65
[2020-10-21 08:29] LABS: CHLORIDE 105 mEq/L (98-107)
[2020-10-21 08:48] LABS: T4 FREE 1.15 ng/dL (0.76-1.46)
[2020-10-21] MEDS: DOCUSATE SODIUM 250MG CAPSULE PO SCH ×2 (08:57→17:04)
[2020-10-21] MEDS: ZINC SULFATE 220 MG ( 50 ) CAPSULE PO SCH (08:57)
[2020-10-21] MEDS: METOPROLOL TARTRATE 25MG TABLET PO SCH ×2 (08:58→21:06)
[2020-10-21] MEDS: ASCORBIC ACID 500 MG TABLET PO SCH ×2 (08:58→21:04)
[2020-10-21] MEDS: FERROUS SULFATE 300MG/5ML UDC PO SCH ×3 (08:59→17:08)
[2020-10-21 20:00] VITALS: BP 119/72
[2020-10-21] MEDS: POLYETHYLENE GLYCOL 3350 (17GM) 1 DOSE PACK PO SCH (21:00)
[2020-10-21] MEDS: ENOXAPARIN 40MG/0.4ML SYR SUBCUT SCH (21:06)
[2020-10-22] MEDS: PHENYLEPH/PRAMOXIN/GLYCR/PET RECTAL CREAM 26GM PR SCH ×4 (06:00→17:26)
[2020-10-22] MEDS: SUCRALFATE 1 G/10 ML UDC PO SCH ×2 (06:07→11:19)
[2020-10-22] MEDS: OMEPRAZOLE 20MG CAPSULE EXTENDED RELEASE PO SCH (06:07)
[2020-10-22] MEDS: HYDROCODONE/ACETAMINOPHEN 10/325MG TABLET PO PRN ×2 (06:09→11:24)
[2020-10-22 08:12] VITALS: BP 104/62
[2020-10-22] MEDS: ASCORBIC ACID 500 MG TABLET PO SCH ×2 (08:31→21:54)
[2020-10-22] MEDS: FERROUS SULFATE 300MG/5ML UDC PO SCH ×3 (08:31→17:26)
[2020-10-22] MEDS: ZINC SULFATE 220 MG ( 50 ) CAPSULE PO SCH (08:31)
[2020-10-22] MEDS: DOCUSATE SODIUM 250MG CAPSULE PO SCH ×2 (08:31→17:26)
[2020-10-22] MEDS: METOPROLOL TARTRATE 25MG TABLET PO SCH ×2 (08:32→21:54)
[2020-10-22 20:00] VITALS: BP 121/71
[2020-10-22] MEDS: ENOXAPARIN 40MG/0.4ML SYR SUBCUT SCH (21:54)
[2020-10-22] MEDS: POLYETHYLENE GLYCOL 3350 (17GM) 1 DOSE PACK PO SCH (21:54)
[2020-10-23] MEDS: PHENYLEPH/PRAMOXIN/GLYCR/PET RECTAL CREAM 26GM PR SCH ×4 (00:57→17:21)
[2020-10-23] MEDS: OMEPRAZOLE 20MG CAPSULE EXTENDED RELEASE PO SCH (05:42)
[2020-10-23 07:35] VITALS: BP 115/68
[2020-10-23] MEDS: ZINC SULFATE 220 MG ( 50 ) CAPSULE PO SCH (08:28)
[2020-10-23] MEDS: DOCUSATE SODIUM 250MG CAPSULE PO SCH ×2 (08:28→16:05)
[2020-10-23] MEDS: METOPROLOL TARTRATE 25MG TABLET PO SCH ×2 (08:28→21:00)
[2020-10-23] MEDS: ASCORBIC ACID 500 MG TABLET PO SCH ×2 (08:28→21:27)
[2020-10-23] MEDS: FERROUS SULFATE 300MG/5ML UDC PO SCH ×3 (08:28→16:05)
[2020-10-23] MEDS: HYDROCODONE/ACETAMINOPHEN 10/325MG TABLET PO PRN (12:02)
[2020-10-23 20:00] VITALS: BP 100/61
[2020-10-23] MEDS: POLYETHYLENE GLYCOL 3350 (17GM) 1 DOSE PACK PO SCH (21:00)
[2020-10-23] MEDS: ENOXAPARIN 40MG/0.4ML SYR SUBCUT SCH (21:28)
[2020-10-24] MEDS: PHENYLEPH/PRAMOXIN/GLYCR/PET RECTAL CREAM 26GM PR SCH ×5 (06:00→23:06)
[2020-10-24] MEDS: OMEPRAZOLE 20MG CAPSULE EXTENDED RELEASE PO SCH (06:01)
[2020-10-24] MEDS: HYDROCODONE/ACETAMINOPHEN 10/325MG TABLET PO PRN ×3 (06:02→16:32)
[2020-10-24 06:59] LABS: CHLORIDE 108 mEq/L (98-107)
[2020-10-24 07:07] LABS: BASOPHILS % 0.5 % (0.0-2.0); EOSINOPHILS % 1.6 % (0.0-5.0); HEMOGLOBIN. 9.8 g/dL (12.0-16.0); LYMPHOCYTES % 30.4 % (20.0-50.0); MEAN CORPUSCULAR HEMOGLOBIN 30.8 pg (28.0-32.0); MEAN CORPUSCULAR VOLUME 91.5 fL (81.0-99.0); MEAN PLATELET VOLUME 8.1 fl (7.4-10.4); MONOCYTES % 9.7 % (2.0-8.0); NEUTROPHILS % 57.8 % (40.0-76.0); PLATELET 295 x1000/uL (130-400); RED BLOOD CELL COUNT 3.17 mill/uL (4.2-5.4); RED CELL DISTRIBUTION WIDTH 15.5 % (11.6-14.6)
[2020-10-24 08:07] VITALS: BP 113/45
[2020-10-24] MEDS: ZINC SULFATE 220 MG ( 50 ) CAPSULE PO SCH (08:36)
[2020-10-24] MEDS: DOCUSATE SODIUM 250MG CAPSULE PO SCH ×2 (08:36→16:29)
[2020-10-24] MEDS: FERROUS SULFATE 300MG/5ML UDC PO SCH ×3 (08:36→16:29)
[2020-10-24] MEDS: ASCORBIC ACID 500 MG TABLET PO SCH ×2 (08:36→20:04)
[2020-10-24] MEDS: METOPROLOL TARTRATE 25MG TABLET PO SCH ×2 (09:00→20:04)
[2020-10-24 12:37] VITALS: BP 128/68
[2020-10-24 16:20] VITALS: BP 143/63
[2020-10-24 20:00] VITALS: BP 124/69
[2020-10-24] MEDS: POLYETHYLENE GLYCOL 3350 (17GM) 1 DOSE PACK PO SCH (20:04)
[2020-10-24] MEDS: ENOXAPARIN 40MG/0.4ML SYR SUBCUT SCH (20:05)
[2020-10-25] MEDS: OMEPRAZOLE 20MG CAPSULE EXTENDED RELEASE PO SCH (06:11)
[2020-10-25] MEDS: PHENYLEPH/PRAMOXIN/GLYCR/PET RECTAL CREAM 26GM PR SCH ×2 (06:12→12:30)
[2020-10-25 07:58] VITALS: BP 115/70
[2020-10-25] MEDS: ERGOCALCIFEROL 50000UNITS CAPSULE PO SCH (08:54)
[2020-10-25] MEDS: METOPROLOL TARTRATE 25MG TABLET PO SCH (08:54)
[2020-10-25] MEDS: ASCORBIC ACID 500 MG TABLET PO SCH (08:54)
[2020-10-25] MEDS: FERROUS SULFATE 300MG/5ML UDC PO SCH ×2 (08:55→14:04)
[2020-10-25] MEDS: ZINC SULFATE 220 MG ( 50 ) CAPSULE PO SCH (08:55)
[2020-10-25] MEDS: DOCUSATE SODIUM 250MG CAPSULE PO SCH (09:40)
[2020-10-25 11:49] VITALS: BP 115/70
[2020-10-25] MEDS ORDERED: POLY17PO3 PO (12:56)
[2020-10-25] MEDS ORDERED: LOPHC2 MT (13:03)
[2020-10-25] MEDS ORDERED: METO25TA6 PO (13:03)
[2020-10-25] MEDS ORDERED: ASCO500C18 MT (13:04)
[2020-10-25] MEDS ORDERED: ERGO800010 PO (13:06)
[2020-10-25] MEDS ORDERED: DOCU250C14 PO (13:06)
[2020-10-25] MEDS ORDERED: OMEP20TA15 PO (13:07)
[2020-10-25] MEDS ORDERED: ZINC220C2 PO (13:07)
[2020-10-25] MEDS ORDERED: FE300LUD PO (13:08)
[2020-10-25 14:05] VITALS: BP 114/63
[2020-10-25] MEDS: HYDROCODONE/ACETAMINOPHEN 10/325MG TABLET PO PRN (14:05)
== END 2020-10-25 14:35 | disposition home health service (06) | DRG 533 ==
PROVIDERS: ADMIT Physical Medicine & Rehabilitation Spinal Cord Injury Medicine; ATTEND Internal Medicine
DX: S72.301A Unspecified fracture of shaft of right femur, initial encounter for closed fracture (principal); E43 Unspecified severe protein-calorie malnutrition; D62 Acute posthemorrhagic anemia; E87.1 Hypo-osmolality and hyponatremia; I42.9 Cardiomyopathy, unspecified; I50.32 Chronic diastolic (congestive) heart failure; E87.2 Acidosis; W01.0XXA Fall on same level from slipping, tripping and stumbling without subsequent striking against object, initial encounter; Y92.009 Unspecified place in unspecified non-institutional (private) residence as the place of occurrence of the external cause; Z96.653 Presence of artificial knee joint, bilateral; D63.8 Anemia in other chronic diseases classified elsewhere; E78.00 Pure hypercholesterolemia, unspecified; E78.5 Hyperlipidemia, unspecified; I11.0 Hypertensive heart disease with heart failure; I25.10 Atherosclerotic heart disease of native coronary artery without angina pectoris; I48.0 Paroxysmal atrial fibrillation; J44.9 Chronic obstructive pulmonary disease, unspecified; M19.011 Primary osteoarthritis, right shoulder; M19.012 Primary osteoarthritis, left shoulder; E53.8 Deficiency of other specified B group vitamins; M85.80 Other specified disorders of bone density and structure, unspecified site; R13.10 Dysphagia, unspecified; B37.3 Candidiasis of vulva and vagina; D50.9 Iron deficiency anemia, unspecified; E55.9 Vitamin D deficiency, unspecified; I25.5 Ischemic cardiomyopathy; I70.0 Atherosclerosis of aorta; K44.9 Diaphragmatic hernia without obstruction or gangrene; K59.09 Other constipation; K76.0 Fatty (change of) liver, not elsewhere classified; M81.0 Age-related osteoporosis without current pathological fracture; M75.02 Adhesive capsulitis of left shoulder; M75.01 Adhesive capsulitis of right shoulder; E04.2 Nontoxic multinodular goiter; I49.5 Sick sinus syndrome; Z82.49 Family history of ischemic heart disease and other diseases of the circulatory system; Z95.0 Presence of cardiac pacemaker; Z80.0 Family history of malignant neoplasm of digestive organs; Z83.3 Family history of diabetes mellitus; Z80.8 Family history of malignant neoplasm of other organs or systems; Z68.36 Body mass index [BMI] 36.0-36.9, adult; W19.XXXA Unspecified fall, initial encounter
CPT/HCPCS: 36415; 78014; 80048; 80053; 81003; 82270; 82306; 82533; 83520; 83735; 84100; 84134; 84439; 84443; 84481; 85025; 86376; 92610; 93005; 93970; 97110; 97116; 97140; 97162; 97166; 97530; 97535; A6261; A9516; J1650; J2405; J3420

== ENCOUNTER 2020-12-12 19:53 | Inpatient (IN) | payer MEDICARE, MEDICAID ==
[~2020-12-12] VITALS: Ht 160 cm; Wt 68.0 kg
[~2020-12-12 19:53] MED LIST changes: -AMLO5TAB88 PO; +ASCO500C18 MT; -CALC-1017 PO; +DOCU250C14 PO; +ERGO800010 PO; +FE300LUD PO; -METO-293 PO; +METO25TA6 PO; +POLY17PO3 PO; +ZINC220C2 PO
[2020-12-12] MEDS ORDERED: ACETAMINOPHEN 325MG TABLET PO STA (20:38)
[2020-12-12] MEDS ORDERED: ALBUTEROL (0.5%) 2.5MG/0.5ML NEB HHN ONE (20:45)
[2020-12-12] MEDS ORDERED: DEXAMETHASONE 10 MG/ML VIAL IV ONE (20:45)
[2020-12-12 21:56] LABS: HEMATOCRIT. 40.4 % (36.0-48.0); HEMOGLOBIN. 13.9 g/dL (12.0-16.0); MEAN CORPUSCULAR VOLUME 87.3 fL (81.0-99.0); MEAN PLATELET VOLUME 9.8 fl (7.4-10.4); PLATELET 249 x1000/uL (130-400); RED BLOOD CELL COUNT 4.63 mill/uL (4.2-5.4); RED CELL DISTRIBUTION WIDTH 14.1 % (11.6-14.6)
[2020-12-12 22:02] LABS: CHLORIDE 102 mEq/L (98-107)
[2020-12-12 22:09] LABS: INR 1.1; PROTHROMBIN TIME 11.4 sec (9.6-11.0)
[2020-12-12 22:10] LABS: CREATINE KINASE 77 IU/L (26-192)
[2020-12-12 22:42] LABS: PLATELET ESTIMATE NORMAL
[2020-12-12] MEDS ORDERED: ASPIRIN 325MG EC TABLET PO NR (22:45)
[2020-12-12] MEDS ORDERED: NITROGLYCERIN OINT 1GM/INCH UDPKT TD NR (22:45)
[2020-12-12] MEDS ORDERED: ENOXAPARIN 60MG/0.6ML SYR SUBCUT NR (22:45)
[2020-12-12] MEDS ORDERED: FUROSEMIDE 40MG/4ML VIAL IV NR (22:45)
[2020-12-12] MEDS ORDERED: KCL 20MEQ/100ML PREMIX 100 ML IV ONE (23:00)
[2020-12-13] MEDS ORDERED: HYDROCODONE/ACETAMINOPHEN 5/325MG TABLET PO PRN (10:15)
[2020-12-13] MEDS ORDERED: CLONIDINE 0.1MG TABLET PO PRN (10:15)
[2020-12-13] MEDS ORDERED: MAGNESIUM/ALUMINUM HYDROXIDE/SIMETHICONE 30ML UDC PO PRN (10:15)
[2020-12-13] MEDS ORDERED: ACETAMINOPHEN 325MG TABLET PO PRN (10:15)
[2020-12-13] MEDS: DEXAMETHASONE 10 MG/ML VIAL PO SCH (10:41)
[2020-12-13] MEDS: AZITHROMYCIN 500 MG TABLET PO SCH (10:41)
[2020-12-13] MEDS ORDERED: CEFTRIAXONE 1 G PREMIX 50 ML IV SCH (11:00)
[2020-12-13] MEDS: ENOXAPARIN 40MG/0.4ML SYR SUBCUT SCH (11:00)
[2020-12-13 13:23] LABS: HEMATOCRIT 39.6 % (36.0-48.0); MEAN CORPUSCULAR HEMOGLOBIN 28.9 pg (28.0-32.0); MEAN CORPUSCULAR VOLUME 88.4 fL (81.0-99.0); PLATELET 278 x1000/uL (130-400); RED BLOOD CELL COUNT 4.48 mill/uL (4.2-5.4); RED CELL DISTRIBUTION WIDTH 14.2 % (11.6-14.6)
[2020-12-13 13:27] LABS: CHLORIDE 108 mEq/L (98-107)
[2020-12-13] MEDS: ASCORBIC ACID 500 MG TABLET PO SCH (20:54)
[2020-12-13] MEDS ORDERED: ASCORBIC ACID 500 MG TABLET PO SCH (21:00)
[2020-12-13] MEDS: ERGOCALCIFEROL 50000UNITS CAPSULE PO SCH (21:50)
[2020-12-13] MEDS ORDERED: DEXTROSE 50% WATER 50ML SYRINGE IV PRN ×2 (23:30)
[2020-12-14 05:45] VITALS: BP 159/85
[2020-12-14] MEDS: BLOOD SUGAR DIAGNOSTIC STRIP TEST SCH ×4 (06:28→21:55)
[2020-12-14] MEDS: INSULIN LISPRO 100 UNITS/ML SUBCUT SCH ×4 (06:28→22:02)
[2020-12-14 08:00] VITALS: BP 159/85
[2020-12-14] MEDS: ASCORBIC ACID 500 MG TABLET PO SCH ×2 (09:44→21:56)
[2020-12-14] MEDS: ENOXAPARIN 40MG/0.4ML SYR SUBCUT SCH (09:44)
[2020-12-14] MEDS: PANTOPRAZOLE SODIUM 40 MG/VIAL IV SCH (09:44)
[2020-12-14] MEDS: DEXAMETHASONE 10 MG/ML VIAL PO SCH (09:44)
[2020-12-14] MEDS: AZITHROMYCIN 500 MG TABLET PO SCH (09:44)
[2020-12-14 10:00] VITALS: BP_SYST 102
[2020-12-14 11:16] LABS: HEMATOCRIT. 41.4 % (36.0-48.0); HEMOGLOBIN. 13.6 g/dL (12.0-16.0); MEAN CORPUSCULAR HEMOGLOBIN 29.2 pg (28.0-32.0); MEAN CORPUSCULAR VOLUME 89.1 fL (81.0-99.0); RED BLOOD CELL COUNT 4.65 mill/uL (4.2-5.4); RED CELL DISTRIBUTION WIDTH 14.2 % (11.6-14.6)
[2020-12-14 11:27] LABS: CHLORIDE 109 mEq/L (98-107)
[2020-12-14 11:37] LABS: LDL CHOLESTEROL 73 mg/dL (5-100); PHOSPHORUS 2.3 mg/dL (2.5-4.9)
[2020-12-14 11:41] LABS: HDL CHOLESTEROL 29 mg/dL (40-59)
[2020-12-14 12:00] VITALS: BP 146/85
[2020-12-14 12:34] LABS: BG BASE EXCESS -2.5 mmol/L (-2.0-2.0); BG CARBOXYHEMOGLOBIN 0.3 % (0.5-1.5); BG DEOXYHEMOGLOBIN 3.6 % (0.0-5.0); BG FRACTION INSPIRED OXYGEN 100; BG METHEMOGLOBIN 0.3 % (0.0-1.5); BG OXYGEN SATURATION 96.4 % (92.0-98.5); BG OXYHEMOGLOBIN 95.8 % (94.0-97.0); BG PCO2 24.9 mmHg (35.0-45.0); BG PO2 77.4 mmHg (75.0-100.0); BG SAMPLE SITE LEFT RADIAL; BG TOTAL HEMOGLOBIN 13.4 g/dL (12.0-18.0); BG VENT MODE MASK - NRB
[2020-12-14] MEDS: CEFTRIAXONE 1,000 MG in DEXTROSE 5% WATER 50 ML IV SCH (13:24)
[2020-12-14 16:00] VITALS: BP 150/83
[2020-12-14 16:14] LABS: MEAN PLATELET VOLUME 9.5 fl (7.4-10.4); PLATELET 284 x1000/uL (130-400); PLATELET ESTIMATE NORMAL
[2020-12-14] MEDS ORDERED: POTASSIUM CHLORIDE INJ 40 MEQ in DEXT 5% WATER 250 ML IV ONE (17:00)
[2020-12-14 20:00] VITALS: BP 128/74
[2020-12-15] VITALS: BP 147/81
[2020-12-15 04:00] VITALS: BP 153/76
[2020-12-15 06:56] LABS: CHLORIDE 114 mEq/L (98-107)
[2020-12-15] MEDS: INSULIN LISPRO 100 UNITS/ML SUBCUT SCH ×4 (07:40→20:58)
[2020-12-15] MEDS: BLOOD SUGAR DIAGNOSTIC STRIP TEST SCH ×4 (07:48→20:11)
[2020-12-15 08:00] VITALS: BP 152/77
[2020-12-15] MEDS: DEXAMETHASONE 10 MG/ML VIAL PO SCH (10:12)
[2020-12-15] MEDS: PANTOPRAZOLE SODIUM 40 MG/VIAL IV SCH (10:12)
[2020-12-15] MEDS: AZITHROMYCIN 500 MG TABLET PO SCH (10:12)
[2020-12-15] MEDS: ENOXAPARIN 40MG/0.4ML SYR SUBCUT SCH (10:12)
[2020-12-15 10:16] LABS: BASOPHILS % 0.1 % (0.0-2.0); HEMATOCRIT. 39.4 % (36.0-48.0); HEMOGLOBIN. 12.6 g/dL (12.0-16.0); LYMPHOCYTES % 9.8 % (20.0-50.0); MEAN CORPUSCULAR HEMOGLOBIN 28.7 pg (28.0-32.0); MEAN CORPUSCULAR VOLUME 89.7 fL (81.0-99.0); MEAN PLATELET VOLUME 9.2 fl (7.4-10.4); MONOCYTES % 4.9 % (2.0-8.0); NEUTROPHILS % 85.2 % (40.0-76.0); PLATELET 286 x1000/uL (130-400); RED BLOOD CELL COUNT 4.39 mill/uL (4.2-5.4); RED CELL DISTRIBUTION WIDTH 14.1 % (11.6-14.6)
[2020-12-15] MEDS: ASCORBIC ACID 500 MG TABLET PO SCH ×2 (11:49→20:54)
[2020-12-15 12:00] VITALS: BP 155/85
[2020-12-15] MEDS: CEFTRIAXONE 1,000 MG in DEXTROSE 5% WATER 50 ML IV SCH (13:13)
[2020-12-15] MEDS: ASPIRIN 81MG TABLET PO SCH (13:13)
[2020-12-15 16:00] VITALS: BP 152/90
[2020-12-15 20:00] VITALS: BP 143/80
[2020-12-16] VITALS: BP 130/80
[2020-12-16 04:00] VITALS: BP 117/69
[2020-12-16] MEDS: BLOOD SUGAR DIAGNOSTIC STRIP TEST SCH ×4 (04:41→21:00)
[2020-12-16] MEDS: INSULIN LISPRO 100 UNITS/ML SUBCUT SCH ×4 (05:18→21:54)
[2020-12-16 08:00] VITALS: BP 142/97
[2020-12-16] MEDS ORDERED: DEXAMETHASONE 10 MG/ML VIAL PO SCH (09:00)
[2020-12-16] MEDS: AZITHROMYCIN 500 MG TABLET PO SCH (09:20)
[2020-12-16] MEDS: ASCORBIC ACID 500 MG TABLET PO SCH ×2 (09:20→21:54)
[2020-12-16] MEDS: ENOXAPARIN 40MG/0.4ML SYR SUBCUT SCH (09:21)
[2020-12-16] MEDS: DEXAMETHASONE 6MG TABLET PO SCH (09:21)
[2020-12-16] MEDS: ASPIRIN 81MG TABLET PO SCH (09:21)
[2020-12-16] MEDS: FAMOTIDINE 20MG TABLET PO SCH (09:27)
[2020-12-16 12:00] VITALS: BP 140/94
[2020-12-16] MEDS ORDERED: FUROSEMIDE 40MG/4ML VIAL IVP NR (12:45)
[2020-12-16] MEDS: CEFTRIAXONE 1,000 MG in DEXTROSE 5% WATER 50 ML IV SCH (13:11)
[2020-12-16 16:00] VITALS: BP 159/100
[2020-12-16 20:00] VITALS: BP 101/66
[2020-12-17] VITALS: BP 110/70
[2020-12-17 04:00] VITALS: BP 111/66
[2020-12-17] MEDS: BLOOD SUGAR DIAGNOSTIC STRIP TEST SCH ×4 (04:53→21:39)
[2020-12-17] MEDS: INSULIN LISPRO 100 UNITS/ML SUBCUT SCH ×4 (05:18→22:34)
[2020-12-17 06:28] LABS: HEMATOCRIT. 43.3 % (36.0-48.0); HEMOGLOBIN. 14.4 g/dL (12.0-16.0); MEAN CORPUSCULAR HEMOGLOBIN 29.7 pg (28.0-32.0); MEAN PLATELET VOLUME 9.4 fl (7.4-10.4); PLATELET 262 x1000/uL (130-400); RED BLOOD CELL COUNT 4.86 mill/uL (4.2-5.4); RED CELL DISTRIBUTION WIDTH 14.8 % (11.6-14.6)
[2020-12-17 06:42] LABS: CHLORIDE 120 mEq/L (98-107)
[2020-12-17 08:00] VITALS: BP 162/85
[2020-12-17] MEDS: ASCORBIC ACID 500 MG TABLET PO SCH ×2 (09:20→22:26)
[2020-12-17] MEDS: AZITHROMYCIN 500 MG TABLET PO SCH (09:20)
[2020-12-17] MEDS: FAMOTIDINE 20MG TABLET PO SCH (09:21)
[2020-12-17] MEDS: DEXAMETHASONE 6MG TABLET PO SCH (09:21)
[2020-12-17] MEDS: ASPIRIN 81MG TABLET PO SCH (09:21)
[2020-12-17] MEDS: ENOXAPARIN 40MG/0.4ML SYR SUBCUT SCH (09:30)
[2020-12-17 12:00] VITALS: BP 150/96
[2020-12-17] MEDS: METOPROLOL TARTRATE 25MG TABLET PO SCH (12:25)
[2020-12-17] MEDS: DEXTROSE 5% WATER 1,000 ML IV SCH (12:25)
[2020-12-17] MEDS: FUROSEMIDE 40MG/4ML VIAL IVP SCH (12:26)
[2020-12-17] MEDS: ALPRAZOLAM 0.25 MG TABLET PO PRN (13:07)
[2020-12-17] MEDS: CEFTRIAXONE 1,000 MG in DEXTROSE 5% WATER 50 ML IV SCH (14:19)
[2020-12-17 15:07] LABS: BG BASE EXCESS -2.2 mmol/L (-2.0-2.0); BG CARBOXYHEMOGLOBIN 0.8 % (0.5-1.5); BG FRACTION INSPIRED OXYGEN 99.9; BG METHEMOGLOBIN 0.2 % (0.0-1.5); BG OXYGEN SATURATION 94.9 % (92.0-98.5); BG PCO2 25.2 mmHg (35.0-45.0); BG PH 7.496 (7.350-7.450); BG PO2 71.7 mmHg (75.0-100.0); BG SAMPLE SITE LEFT RADIAL; BG TOTAL HEMOGLOBIN 15.9 g/dL (12.0-18.0); BG VENT MODE MASK - NRB
[2020-12-17 16:00] VITALS: BP 152/78
[2020-12-17] MEDS ORDERED: GUAIFENESIN-DM 200MG-20MG/10ML UDC PO PRN (16:00)
[2020-12-17 20:00] VITALS: BP 142/86
[2020-12-17 22:25] LABS: PLATELET ESTIMATE NORMAL
[2020-12-17] MEDS: ATORVASTATIN CALCIUM 20MG TABLET PO SCH (22:26)
[2020-12-17] MEDS: BENZONATATE 100MG CAPSULE PO SCH (22:26)
[2020-12-18] VITALS: BP 156/86
[2020-12-18] MEDS: ALPRAZOLAM 0.25 MG TABLET PO PRN ×2 (02:27→10:38)
[2020-12-18 04:00] VITALS: BP 122/89
[2020-12-18] MEDS: BENZONATATE 100MG CAPSULE PO SCH ×3 (05:33→21:31)
[2020-12-18] MEDS: BLOOD SUGAR DIAGNOSTIC STRIP TEST SCH ×4 (06:16→21:59)
[2020-12-18] MEDS: DEXTROSE 5% WATER 1,000 ML IV SCH (06:16)
[2020-12-18] MEDS: INSULIN LISPRO 100 UNITS/ML SUBCUT SCH ×4 (06:33→21:59)
[2020-12-18 08:00] VITALS: BP 127/83
[2020-12-18] MEDS: DEXAMETHASONE 6MG TABLET PO SCH (09:42)
[2020-12-18] MEDS: ASPIRIN 81MG TABLET PO SCH (09:42)
[2020-12-18] MEDS: ENOXAPARIN 40MG/0.4ML SYR SUBCUT SCH (09:42)
[2020-12-18] MEDS: FUROSEMIDE 40MG/4ML VIAL IVP SCH (09:42)
[2020-12-18] MEDS: ASCORBIC ACID 500 MG TABLET PO SCH ×2 (09:42→21:31)
[2020-12-18] MEDS: AZITHROMYCIN 500 MG TABLET PO SCH (09:42)
[2020-12-18] MEDS: METOPROLOL TARTRATE 25MG TABLET PO SCH (09:43)
[2020-12-18] MEDS: FAMOTIDINE 20MG TABLET PO SCH (10:38)
[2020-12-18] MEDS ORDERED: FUROSEMIDE 20MG/2ML VIAL IVP SCH (12:00)
[2020-12-18 13:09] LABS: CHLORIDE 123 mEq/L (98-107)
[2020-12-18] MEDS: CEFTRIAXONE 1,000 MG in DEXTROSE 5% WATER 50 ML IV SCH (13:46)
[2020-12-18 14:00] VITALS: BP 118/71
[2020-12-18 16:00] VITALS: BP 143/87
[2020-12-18 20:00] VITALS: BP 129/89
[2020-12-18] MEDS: ATORVASTATIN CALCIUM 20MG TABLET PO SCH (21:31)
[2020-12-19] VITALS: BP 146/78
[2020-12-19 04:00] VITALS: BP 162/91
[2020-12-19] MEDS: BLOOD SUGAR DIAGNOSTIC STRIP TEST SCH ×4 (06:07→20:43)
[2020-12-19] MEDS: BENZONATATE 100MG CAPSULE PO SCH ×3 (06:32→20:43)
[2020-12-19] MEDS: INSULIN LISPRO 100 UNITS/ML SUBCUT SCH ×4 (06:33→20:43)
[2020-12-19 06:59] LABS: HEMATOCRIT. 49.4 % (36.0-48.0); HEMOGLOBIN. 15.9 g/dL (12.0-16.0); MEAN CORPUSCULAR HEMOGLOBIN 29.3 pg (28.0-32.0); MEAN PLATELET VOLUME 9.8 fl (7.4-10.4); PLATELET 207 x1000/uL (130-400); RED BLOOD CELL COUNT 5.43 mill/uL (4.2-5.4); RED CELL DISTRIBUTION WIDTH 14.8 % (11.6-14.6)
[2020-12-19 08:00] VITALS: BP 132/85
[2020-12-19] MEDS: ALPRAZOLAM 0.25 MG TABLET PO PRN (09:44)
[2020-12-19] MEDS: FAMOTIDINE 20MG TABLET PO SCH (09:44)
[2020-12-19] MEDS: ASPIRIN 81MG TABLET PO SCH (09:44)
[2020-12-19] MEDS: ASCORBIC ACID 500 MG TABLET PO SCH ×2 (09:44→20:43)
[2020-12-19] MEDS: FUROSEMIDE 40MG/4ML VIAL IVP SCH (09:44)
[2020-12-19] MEDS: ENOXAPARIN 40MG/0.4ML SYR SUBCUT SCH (09:44)
[2020-12-19] MEDS: DEXAMETHASONE 6MG TABLET PO SCH (09:44)
[2020-12-19] MEDS: METOPROLOL TARTRATE 25MG TABLET PO SCH (09:46)
[2020-12-19 12:00] VITALS: BP 124/74
[2020-12-19 15:19] LABS: PLATELET ESTIMATE NORMAL
[2020-12-19 16:00] VITALS: BP 128/82
[2020-12-19 20:00] VITALS: BP 158/82
[2020-12-19] MEDS: ATORVASTATIN CALCIUM 20MG TABLET PO SCH (20:43)
[2020-12-20] VITALS: BP 157/72
[2020-12-20] MEDS ORDERED: CALCIUM CHLORIDE 1GM/10ML SYR IV ONE (03:00)
[2020-12-20 04:00] VITALS: BP 110/88
[2020-12-20] MEDS: BENZONATATE 100MG CAPSULE PO SCH ×3 (06:00→22:00)
[2020-12-20] MEDS: BLOOD SUGAR DIAGNOSTIC STRIP TEST SCH ×4 (06:10→21:43)
[2020-12-20] MEDS: INSULIN LISPRO 100 UNITS/ML SUBCUT SCH ×4 (06:10→22:48)
[2020-12-20 08:00] VITALS: BP 126/81
[2020-12-20] MEDS: ASCORBIC ACID 500 MG TABLET PO SCH ×2 (09:09→21:00)
[2020-12-20] MEDS: ASPIRIN 81MG TABLET PO SCH (09:09)
[2020-12-20] MEDS: FAMOTIDINE 20MG TABLET PO SCH (09:09)
[2020-12-20] MEDS: DEXAMETHASONE 6MG TABLET PO SCH (09:09)
[2020-12-20] MEDS: FUROSEMIDE 40MG/4ML VIAL IVP SCH (09:09)
[2020-12-20] MEDS: ERGOCALCIFEROL 50000UNITS CAPSULE PO SCH (09:09)
[2020-12-20] MEDS: ENOXAPARIN 40MG/0.4ML SYR SUBCUT SCH (09:10)
[2020-12-20] MEDS: METOPROLOL TARTRATE 25MG TABLET PO SCH (09:10)
[2020-12-20 12:00] VITALS: BP 108/69
[2020-12-20 14:35] LABS: BG BASE EXCESS -6.3 mmol/L (-2.0-2.0); BG CARBOXYHEMOGLOBIN 0.4 % (0.5-1.5); BG DEOXYHEMOGLOBIN 3.3 % (0.0-5.0); BG FRACTION INSPIRED OXYGEN 99.9; BG HCO3 ACT 17.1 mmol/L (22.0-26.0); BG METHEMOGLOBIN 0.2 % (0.0-1.5); BG OXYGEN SATURATION 96.7 % (92.0-98.5); BG OXYHEMOGLOBIN 96.1 % (94.0-97.0); BG PCO2 29.6 mmHg (35.0-45.0); BG PO2 90.4 mmHg (75.0-100.0); BG SAMPLE SITE RIGHT BRACHIAL; BG TOTAL HEMOGLOBIN 17.5 g/dL (12.0-18.0); BG VENT MODE MASK - NRB
[2020-12-20 16:00] VITALS: BP 110/83
[2020-12-20] MEDS: LACTULOSE 20G/30ML UDC PO SCH ×2 (17:00→18:01)
[2020-12-20 20:00] VITALS: BP 115/70
[2020-12-20] MEDS: ATORVASTATIN CALCIUM 20MG TABLET PO SCH (21:00)
[2020-12-20] MEDS: DEXTROSE 5% WATER 1,000 ML IV SCH (23:11)
[2020-12-21] VITALS: BP 96/45
[2020-12-21] MEDS ORDERED: EPINEPHRINE 0.1MG/ML (1:10,000) 10ML SYR ONE (03:00)
[2020-12-21] MEDS ORDERED: DEXTROSE 50% WATER 50ML SYRINGE IV ONE (03:00)
[2020-12-21] MEDS ORDERED: SODIUM BICARBONATE 8.4% 1 MEQ/ML 50ML SYR IV ONE (03:00)
[2020-12-21] MEDS ORDERED: NOREPINEPHRINE 32 MG in DEXT 5% WATER 218 ML IV PRN (04:00)
[2020-12-21] MEDS ORDERED: DOPAMINE 800MG PREMIX (DOUBLE) 250 ML IV PRN (04:00)
== END 2020-12-21 05:30 | disposition expired | DRG 871 ==
LOC: ER 19:53 → EDBEDREQ 12-13 00:01 → EDBEDREQDT 12-13 00:01 → EDBEDREQSVC 12-13 00:01 → EDBEDREQTM 12-13 00:01 → 8WST 12-13 23:59 → ENRESERV 12-14 02:15 → CVICU 12-21 03:50
PROVIDERS: ADMIT Internal Medicine; ATTEND Internal Medicine
PROC: 5A12012 Performance of Cardiac Output, Single, Manual (ICD-10-PCS; principal; 2020-12-13)
PROC: 5A1935Z Respiratory Ventilation, Less than 24 Consecutive Hours (ICD-10-PCS; 2020-12-21)
PROC: 0BH18EZ Insertion of Endotracheal Airway into Trachea, Via Natural or Artificial Opening Endoscopic (ICD-10-PCS; 2020-12-21)
DX: A41.89 Other specified sepsis (principal); U07.1 COVID-19; J96.01 Acute respiratory failure with hypoxia; J12.82 Pneumonia due to coronavirus disease 2019; J15.9 Unspecified bacterial pneumonia; I21.4 Non-ST elevation (NSTEMI) myocardial infarction; E87.2 Acidosis; I50.32 Chronic diastolic (congestive) heart failure; J44.0 Chronic obstructive pulmonary disease with (acute) lower respiratory infection; E44.1 Mild protein-calorie malnutrition; I48.0 Paroxysmal atrial fibrillation; E78.5 Hyperlipidemia, unspecified; E87.6 Hypokalemia; E11.9 Type 2 diabetes mellitus without complications; I25.10 Atherosclerotic heart disease of native coronary artery without angina pectoris; Z96.651 Presence of right artificial knee joint; B97.89 Other viral agents as the cause of diseases classified elsewhere; D64.9 Anemia, unspecified; I46.9 Cardiac arrest, cause unspecified; M19.011 Primary osteoarthritis, right shoulder; M19.012 Primary osteoarthritis, left shoulder; Z66 Do not resuscitate; Z51.5 Encounter for palliative care; M75.00 Adhesive capsulitis of unspecified shoulder; R00.1 Bradycardia, unspecified; I11.0 Hypertensive heart disease with heart failure; Z79.2 Long term (current) use of antibiotics; Z95.0 Presence of cardiac pacemaker; Z68.26 Body mass index [BMI] 26.0-26.9, adult; Z79.899 Other long term (current) drug therapy
CPT/HCPCS: 36415; 36600; 71045; 80048; 80053; 80061; 80076; 82140; 82375; 82550; 82728; 82805; 82962; 83605; 83615; 83735; 83880; 84100; 84145; 84443; 84484; 85025; 85384; 86140; 87804; 92950; 93005; 93970; 94002; 94660; 99291; C1893; C9113; C9803; J0696; J1100; J1650; J1815; J1940; J3480; J3490; J7040; J7060; J7070; U0003